=== PATIENT | female | born 1955 | race Caucasian/White ===

== ENCOUNTER 2021-03-19 18:49 | Emergency (ER) | payer MEDICARE, BC ==
[2021-03-19] MEDS ORDERED: Sodium Chloride 0.9% 10 ML Syringe FLUSH PRN (19:21)
[2021-03-19] MEDS ORDERED: Sodium Chloride 0.9% 2.5 ML Syringe FLUSH PRN (19:21)
[2021-03-19] MEDS ORDERED: Meclizine 25 MG Tab PO ONE (19:23)
--- NOTE | 2021-03-19 19:27 | EDM.PDOC ---
ED HPI GENERAL MEDICAL PROBLEM - General Chief Complaint: General Stated Complaint: DIZZINESS Time Seen by Provider: 03/19/21 19:08 - History of Present Illness INITIAL COMMENTS - FREE TEXT/NARRATIVE: 66-year-old female with a history of hypertension and hyperlipidemia also history of chronic pain in the back with a morphine pump in place for some years who is presenting with vertigo. Patient was laying down resting because of her back which is common for her. She got up and had sudden onset of rapid room spinning associated with nausea but no vomiting. She laid back down and the symptoms proved but then recurred again when she stood up 30 minutes later. Symptoms of been going on for the last hour. She was in her normal state of health prior to this. No chest pain or shortness of breath no syncope or near syncope no neck pain no recent neck injury or manipulation. Back Pain Score (Numeric/FACES): 7 - Related Data Allergies Allergy/AdvReac Type Severity Reaction Status Date / Time No Known Allergies Allergy Verified 03/19/21 19:12 Home Meds: Home Meds Meclizine [Antivert] 25 mg PO TID PRN 5 Days #15 tab.chew 03/19/21 [Rx] Past Medical History Cardiovascular History: Reports: High Cholesterol, Hypertension [employer] History: Reports: Musculoskeletal History: Reports: Back Pain, Chronic Neurological History: Reports: Neuropathy, Diabetic, Neuropathy, Peripheral Psychiatric History: Reports: Anxiety, Depression Endocrine/Metabolic History: Reports: Diabetes, Type II, Obesity/BMI 30+ - Past Surgical History Musculoskeletal Surgical History: Reports: Other (See Below) Other Musculoskeletal Surgeries/Procedures:: has morphine pain pump Social & Family History - Tobacco Use Tobacco Use Status *Q: Never Tobacco User Second Hand Smoke Exposure: No - Recreational Drug Use Recreational Drug Use: No ED ROS GENERAL - Review of Systems Review Of Systems: See Below Free Text/Narrative/Comment: General: No fever. Skin: No rash. Eyes: No vision problems. ENT: No sore throat. Neck: No neck stiffness. Respiratory: No shortness of breath. Cardiac: No chest pain. Gastrointestinal: No nausea, vomiting or abdominal pain. Urinary: No dysuria. Musculoskeletal: No myalgias/arthralgias. Neurologic: Per HPI ED EXAM, GENERAL - Physical Exam Exam: See Below Free Text/Narrative:: General Appearance: No acute distress, appears comfortable Skin: No rash HEENT: Normocephalic/atraumatic, sclera anicteric, mucous membranes moist Neck: Normal range of motion Chest and Lungs: Bilateral breath sounds, clear to auscultation Cardiovascular: Regular rate and rhythm, no murmur Abdomen: Soft, non-tender Musculoskeletal: No edema or tenderness Neurologic: Cranial nerves III through XI intact bilaterally, normal [id number] bilaterally, speech fluent no aphasia or dysarthria, alert and oriented, some nystagmus with right lateral gaze Psychiatric: Appropriate, cooperative #1 Interpretation EKG Date: 03/19/21 Time: 19:48 EKG Interpretation Comments: Normal sinus rhythm rate of 86 nonspecific shallow anterior lateral T wave inversions no ST elevations or depressions these changes are nonspecific QTC borderline at 492 Course - Vital Signs Last Recorded V/S: Last Vital Signs Temp 98.8 F 03/19/21 19:12 Pulse 82 03/19/21 21:42 Resp 18 03/19/21 21:42 BP 153/75 H 03/19/21 21:42 Pulse Ox 98 03/19/21 21:42 - Orders/Labs/Meds Orders: Active Orders 24 hr Category Date Time Status Sodium Chloride 0.9% [Saline Flush] Med 03/19/21 19:21 Active 10 ml FLUSH ASDIRECTED PRN Sodium Chloride 0.9% [Saline Flush] Med 03/19/21 19:21 Active 2.5 ml FLUSH ASDIRECTED PRN Saline Lock Insert [OM.PC] Stat Oth 03/19/21 19:22 Ordered Medication Orders Sodium Chloride (Sodium Chloride 0.9% 10 Ml Syringe) 10 ml FLUSH ASDIRECTED PRN PRN Reason: Keep Vein Open Last Admin: 03/19/21 19:46 Dose: 10 ml Documented by: MIGUEL Sodium Chloride (Sodium Chloride 0.9% 2.5 Ml Syringe) 2.5 ml FLUSH ASDIRECTED PRN PRN Reason: Keep Vein Open Last Admin: 03/19/21 19:46 Dose: 2.5 ml Documented by: MIGUEL Labs: Laboratory Tests 03/19/21 03/19/21 Range/Units 19:45 19:45 WBC 9.68 (4.0-11.0) K/uL RBC 4.35 (4.30-5.90) M/uL Hgb 14.1 (12.0-16.0) g/dL Hct 41.5 (36.0-46.0) % MCV 95.4 (80.0-98.0) fL MCH 32.4 H (27.0-32.0) pg MCHC 34.0 (31.0-37.0) g/dL RDW Std Deviation 45.0 (28.0-62.0) fl RDW Coeff of Lyndon 13 (11.0-15.0) % Plt Count 243 (150-400) K/uL MPV 9.80 (7.40-12.00) fL Neut % (Auto) 58.9 (48.0-80.0) % Lymph % (Auto) 29.8 (16.0-40.0) % Finney % (Auto) 8.4 (0.0-15.0) % Eos % (Auto) 2.5 (0.0-7.0) % Baso % (Auto) 0.4 (0.0-1.5) % Neut # (Auto) 5.7 (1.4-5.7) K/uL Lymph # (Auto) 2.9 H (0.6-2.4) K/uL Finney # (Auto) 0.8 (0.0-0.8) K/uL Eos # (Auto) 0.2 (0.0-0.7) K/uL Baso # (Auto) 0.0 (0.0-0.1) K/uL Nucleated RBC % 0.0 /100WBC Nucleated RBCs # 0 K/uL Sodium 143 (136-145) mmol/L Potassium 3.5 (3.5-5.1) mmol/L Chloride 105 (98-107) mmol/L Carbon Dioxide 28.6 (21.0-32.0) mmol/L BUN 13 (7.0-18.0) mg/dL Creatinine 1.0 (0.6-1.0) mg/dL Est Cr Clr Drug Dosing TNP Estimated GFR (MDRD) 55.1 ml/min Glucose 142 H (74-106) mg/dL Calcium 8.1 L (8.5-10.1) mg/dL Total Bilirubin 0.3 (0.2-1.0) mg/dL AST 16 (15-37) IU/L ALT 25 (14-63) IU/L Alkaline Phosphatase 133 H (46-116) U/L Troponin I < 0.050 (0.000-0.056) ng/mL Total Protein 6.9 (6.4-8.2) g/dL Albumin 3.0 L (3.4-5.0) g/dL Globulin 3.9 (2.6-4.0) g/dL Albumin/Globulin Ratio 0.8 L (0.9-1.6) Meds: Medications Generic Name Dose Route Start Last Admin Trade Name Freq PRN Reason Stop Dose Admin Sodium Chloride 10 ml 03/19/21 19:21 03/19/21 19:46 Sodium Chloride 0.9% 10 Ml Syringe FLUSH 10 ml ASDIRECTED PRN Administration Keep Vein Open Sodium Chloride 2.5 ml 03/19/21 19:21 03/19/21 19:46 Sodium Chloride 0.9% 2.5 Ml Syringe FLUSH 2.5 ml ASDIRECTED PRN Administration Keep Vein Open Discontinued Medications Generic Name Dose Route Start Last Admin Trade Name Freq PRN Reason Stop Dose Admin Iopamidol 100 ml 03/19/21 21:48 03/19/21 21:49 Iopamidol 755 Mg/Ml 500 Ml Multipack Bottle IVPUSH 03/19/21 21:49 100 ml ONETIME STA Administration Meclizine HCl 25 mg 03/19/21 19:23 03/19/21 19:46 Meclizine 25 Mg Tab PO 03/19/21 19:24 25 mg ONETIME ONE Administration Departure - Departure Time of Disposition: 23:24 Disposition: Home, Self-Care 01 Condition: Good Clinical Impression: BPPV (benign paroxysmal positional vertigo) - Discharge Information *PRESCRIPTION DRUG MONITORING PROGRAM REVIEWED*: Not Applicable *COPY OF PRESCRIPTION DRUG MONITORING REPORT IN PATIENT WHITNEY: Not Applicable Prescriptions: Meclizine [Antivert] 25 mg PO TID PRN 5 Days #15 tab.chew PRN Reason: Dizziness Instructions: Vertigo, [id number] Forms: ED Department Discharge Additional Instructions: Your symptoms today are likely due to benign paroxysmal positional vertigo. You did have some plaque in the carotid arteries in your neck on both sides. This is not causing any narrowing of the arteries however. I encourage you to talk to your primary care doctor about this to see if you need to start taking an aspirin. In some patients this is appropriate and others not. A prescription for meclizine has been sent to the pharmacy and you can pick this up tomorrow morning. This medicine is to be taken as needed for your symptoms. The following information is given to patients seen in the emergency department who are being discharged to home. This information is to outline your options for follow-up care. We provide all patients seen in our emergency department with a follow-up referral. The need for follow-up, as well as the timing and circumstances, are variable depending upon the specifics of your emergency department visit. If you don't have a primary care physician on staff, we will provide you with a referral. We always advise you to contact your personal physician following an emergency department visit to inform them of the circumstance of the visit and f or follow-up with them and/or the need for any referrals to a consulting specialist. The emergency department will also refer you to a specialist when appropriate. This referral assures that you have the opportunity for follow-up care with a specialist. All of these measure are taken in an effort to provide you with optimal care, which includes your follow-up. Under all circumstances we always encourage you to contact your private physician who remains a resource for coordinating your care. When calling for follow-up care, please make the office aware that this follow-up is from your recent emergency room visit. If for any reason you are refused follow-up, please contact the [facility] Emergency Department at and asked to speak to the emergency department charge nurse. Sepsis Event Note (ED) - Evaluation Sepsis Screening Result: No Definite Risk - Focused Exam Vital Signs: Vital Signs Temp Pulse Resp BP Pulse Ox 03/19/21 21:42 82 18 153/75 H 98 03/19/21 19:12 98.8 F 86 20 149/73 H 94 L - My Orders Last 24 Hours: My Active Orders 03/19/21 19:21 Sodium Chloride 0.9% [Saline Flush] 10 ml FLUSH ASDIRECTED PRN Sodium Chloride 0.9% [Saline Flush] 2.5 ml FLUSH ASDIRECTED PRN 03/19/21 19:22 Saline Lock Insert [OM.PC] Stat - Assessment/Plan Last 24 Hours: My Active Orders 03/19/21 19:21 Sodium Chloride 0.9% [Saline Flush] 10 ml FLUSH ASDIRECTED PRN Sodium Chloride 0.9% [Saline Flush] 2.5 ml FLUSH ASDIRECTED PRN 03/19/21 19:22 Saline Lock Insert [OM.PC] Stat Assessment:: 66-year-old female present with signs and symptoms that are most consistent with BPPV. Symptoms are clearly positional sudden and severe. Patient has a normal cerebellar exam. She has no risk factors for aortic dissection. That said she does have a number of risk factors for stroke and given her age I think initial stroke evaluation is prudent CT CTA of the head neck has been ordered EKG troponin and basic blood work. Meclizine will be given for symptoms and reassess. If evaluation is reassuring and patient symptoms improved at home with ongoing outpatient follow-up is appropriate and reasonable. Patient clearly describes her dizziness as a vertigo not a syncope or near syncope. 2323: Labs unremarkable. CT with plaque in the bilateral carotid arteries but no stenosis and otherwise unremarkable. Patient symptoms have resolved. Given recent changes in aspirin recommendation we will not start her on an aspirin at this time patient will follow up with her primary care doctor regarding this. Patient ambulates with a steady gait symptoms resolved.
[2021-03-19 20:17] LABS: BLOOD UREA NITROGEN,BUN 13 mg/dL (7.0-18.0); CARBON DIOXIDE,CO2 28.6 mmol/L (21.0-32.0); CHLORIDE,CL 105 mmol/L (98-107); GLUCOSE RANDOM 142 mg/dL (74-106); POTASSIUM,K 3.5 mmol/L (3.5-5.1); SODIUM,NA 143 mmol/L (136-145)
[2021-03-19] MEDS ORDERED: Iopamidol 755 MG/ML 500 ML Multipack Bottle IVPUSH STA (21:48)
--- NOTE | 2021-03-19 23:04 | CT ---
INDICATION: Vertigo COMPARISON: None available. TECHNIQUE: CT examination of the head was performed with 3 mm thick axial, sagittal, and coronal sections without intravenous contrast. Images were obtained from the vertex of the skull through the skull base, and I examined the images with the brain and bone windows. Please note that all CT scans at this facility use dose modulation, iterative reconstruction, and/or weight-based dosing when appropriate to reduce radiation dose to as low as reasonably achievable. FINDINGS: : The brain is normal in appearance for the patient`s age on today`s study, with no sign of mass lesion, mass effect, hemorrhage, or edema. The ventricles and sulci are normal in appearance for the patient`s age. The visualized portions of the orbits are normal in appearance. The visualized portions of the paranasal sinuses and mastoids are clear. The osseous structures are normal in their appearance with no sign of abnormality in the skull base or calvarium. IMPRESSION: Normal noncontrast CT of the head for the patient`s age. Please note that all CT scans at this facility use dose modulation, iterative reconstruction, and/or weight-based dosing when appropriate to reduce radiation dose to as low as reasonably achievable. Dictated by Carlos Ibrahim MD @ 03/19/2021 11:02:35 PM (Electronically Signed)
--- NOTE | 2021-03-19 23:08 | CT ---
INDICATION: Vertigo. TECHNIQUE: CTA head with contrast bolus tracking and 3D MIP reconstruction. FINDINGS: There is no significant intracranial stenosis. There is no large vessel occlusion. There is no aneurysm. IMPRESSION: Unremarkable CT head. Please note that all CT scans at this facility use dose modulation, iterative reconstruction, and/or weight-based dosing when appropriate to reduce radiation dose to as low as reasonably achievable. Dictated by Osbaldo Hughes MD @ 03/20/2021 12:38:33 AM (Electronically Signed)
--- NOTE | 2021-03-19 23:12 | CT ---
INDICATION: Vertigo. TECHNIQUE: CTA neck with contrast bolus tracking and 3D MIP reconstruction. FINDINGS: Calcified plaque is present in the proximal ICAs bilaterally. There is no significant stenosis by NASCET criteria. There is no evidence for dissection. There is no significant vertebral artery stenosis or dissection. IMPRESSION: Carotid atherosclerotic disease without stenosis. No significant vertebral artery stenosis or dissection. Please note that all CT scans at this facility use dose modulation, iterative reconstruction, and/or weight-based dosing when appropriate to reduce radiation dose to as low as reasonably achievable. Dictated by Osbaldo Hughes MD @ 03/20/2021 12:39:50 AM (Electronically Signed)
== END 2021-03-20 00:03 | disposition home or self-care (01) ==
LOC: MW.ED 18:49
DX: H81.10 Benign paroxysmal vertigo, unspecified ear (principal); I10 Essential (primary) hypertension; E11.42 Type 2 diabetes mellitus with diabetic polyneuropathy; E66.9 Obesity, unspecified
CPT/HCPCS: 36415; 70450; 70496; 70498; 80053; 84484; 85025; 93005; 99284; A9270; Q9967

== ENCOUNTER 2022-09-20 13:08 | Day surgery (SDC) | payer MEDICARE ==
[~2022-09-20 13:08] MED LIST: Lactated Ringers 1,000 ML IV SCH; Propofol 200 MG/20 ML SDV ONE; Sodium Chloride 0.9% 10 ML Syringe FLUSH PRN; Sodium Chloride 0.9% 2.5 ML Syringe FLUSH PRN; Sodium Chloride 0.9% 20 ML SDV IV PRN
[2022-09-20] MEDS ORDERED: fentaNYL 100 MCG/2 ML SDV ONE (14:59)
== END 2022-09-20 15:55 | disposition home or self-care (01) ==
LOC: MW.SDS 13:08
PROVIDERS: ATTEND Surgery
DX: Z12.11 Encounter for screening for malignant neoplasm of colon (principal); D12.3 Benign neoplasm of transverse colon; K57.30 Diverticulosis of large intestine without perforation or abscess without bleeding; E66.9 Obesity, unspecified; F32.A Depression, unspecified; I10 Essential (primary) hypertension; E78.00 Pure hypercholesterolemia, unspecified; G47.00 Insomnia, unspecified; J45.20 Mild intermittent asthma, uncomplicated; E11.9 Type 2 diabetes mellitus without complications; N39.0 Urinary tract infection, site not specified; E03.9 Hypothyroidism, unspecified; G43.909 Migraine, unspecified, not intractable, without status migrainosus; M54.50 Low back pain, unspecified; G89.29 Other chronic pain; Z86.010 Personal history of colon polyps; Z88.5 Allergy status to narcotic agent; Z79.899 Other long term (current) drug therapy; Z79.890 Hormone replacement therapy; Z68.38 Body mass index [BMI] 38.0-38.9, adult; Z98.890 Other specified postprocedural states
CPT/HCPCS: 45380; J2704; J3010; J7120; 00811; 88305